=== PATIENT | female | born 2005 | race Caucasian/White ===

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

== ENCOUNTER 2024-06-09 10:57 | Day surgery (SDC) | payer OTHER ==
[2024-06-09 11:15] LABS: HCG URINE TEST NEGATIVE (NEGATIVE)
[2024-06-09] MEDS ORDERED: propofoL IV ONE ×2 (12:57→13:07)
--- NOTE | 2024-06-09 14:23 | XRAY ---
Indication: Bilateral SI joint injection. Intraoperative fluoroscopy provided for 22 seconds. 6 digital spot images submitted for interpretation demonstrates posterior needle tips projecting over the left and right SI joints. Small amount of contrast injected for needle tip placement. Correlate with intraoperative findings/report.
--- NOTE | 2024-06-09 14:57 | XRAY ---
22 seconds of fluoroscopy was used in surgery for a bilateral sacroiliac joint injection.
== END 2024-06-09 13:29 | disposition home or self-care (01) ==
LOC: SDC-PAIN 10:57
PROVIDERS: ATTEND Psychiatry & Neurology Pain Medicine
DX: M46.1 Sacroiliitis, not elsewhere classified (principal)
CPT/HCPCS: 27096; 72202; 77002; 81025; J2704; Q9966

== ENCOUNTER 2024-06-22 13:14 | Emergency (ER) | payer OTHER ==
--- NOTE | 2024-06-22 13:19 | ERPHSYRPT ---
- History of Present Illness Time Seen by Provider: 06/22/24 13:19 Source: patient Exam Limitations: no limitations Physician History: This is a 19-year-old white female patient who arrives by private vehicle accompanied by family/friend who is a patient of Dr. Burch concerned about headache with associated tingling in her left hand, nose and tongue which occurred prior to arrival and was brief. Patient does have a history of migraine headaches. Her headache pain is controlled as an outpatient by Dr. Prieto and Dr. Martinez, both physicians were seen within the last 10 days. Patient has had a craniotomy in the past secondary to a bolt flying out of a lawnmower hitting her in the left side of her forehead and she has a titanium plate in place. She has no chest pain. She has no shortness of breath. The tingling has subsided. Timing/Duration: today Head Pain Location: frontal Severity of Pain-Max: mild Severity of Pain-Current: mild Recent Head Trauma: no recent headache/trauma, chronic headaches Associated Symptoms: sensitive to light, No confusion, No dizziness, No light- headedness, No neck pain, No speech problems, No stiff neck, No vision changes, No visual disturbance Previous symptoms: same symptoms as today, no recent treatment Allergies/Adverse Reactions: No Known Drug Allergies Allergy (Verified 12/23/22 02:21) Home Medications: Ethinyl Estradiol/Drospirenone [Loryna 3 mg-0.02 mg Tablet] 1 each PO DAILY 06/22/24 [History] Hx Tetanus, Diphtheria Vaccination/Date Given: Yes Hx Influenza Vaccination/Date Given: No Hx Pneumococcal Vaccination/Date Given: No Travel Risk - International Travel Have you traveled outside of the country in past 3 weeks: No - Emerging Infectious Disease Are you exhibiting symptoms associated with any current EIDs: No - Review of Systems Constitutional: No Symptoms Eyes: No Symptoms Ears, Nose, & Throat: No Symptoms Respiratory: No Symptoms Cardiac: No Symptoms Abdominal/Gastrointestinal: No Symptoms Genitourinary Symptoms: No Symptoms Musculoskeletal: No Symptoms Skin: No Symptoms Neurological: Headache, Parasthesia (Now resolved. However, initially and briefly was present left hand, tongue and nose) Psychological: No Symptoms Endocrine: No Symptoms Hematologic/Lymphatic: No Symptoms Immunological/Allergic: No Symptoms All Other Systems: Reviewed and Negative - Past Medical History Pertinent Past Medical History: Yes Neurological History: Migraines ENT History: No Pertinent History Cardiac History: No Pertinent History Respiratory History: No Pertinent History Endocrine Medical History: No Pertinent History Musculoskeletal History: No Pertinent History GI Medical History: No Pertinent History History: No Pertinent History Psycho-Social History: No Pertinent History Female Reproductive Disorders: No Pertinent History Other Medical History: TITANIUM PLATE IN SKULL WITH SMALL PORTION OF HER BRAIN REMOVED AFTER INCIDENT WHEN GETTING HIT WITH PROJECTILE OBJECT WHEN SHE WAS LITTLE. - Past Surgical History Past Surgical History: Yes Neuro Surgical History: Other Cardiac: No Pertinent History Respiratory: No Pertinent History Gastrointestinal: No Pertinent History Genitourinary: No Pertinent History Musculoskeletal: No Pertinent History Female Surgical History: No Pertinent History Other Surgical History: Titanium plate in forehead - Social History Smoking Status: Never smoker Exposure to second hand smoke: Yes Drug Use: none Patient Lives Alone: No - Nursing Vital Signs Nursing Vital Signs: Initial Vital Signs Temperature 97.2 F 06/22/24 13:22 Pulse Rate 96 H 06/22/24 13:22 Respiratory Rate 18 06/22/24 13:22 Blood Pressure 150/101 06/22/24 13:22 O2 Sat by Pulse Oximetry 100 06/22/24 13:22 Pain Scale Pain Intensity 0 - Physical Exam General Appearance: no apparent distress, alert, anxiety, thin Eye Exam: eyes nml inspection Ears, Nose, Throat Exam: moist mucous membranes Neck Exam: normal inspection, non-tender, supple, full range of motion Respiratory Exam: normal breath sounds, lungs clear, airway intact, No chest tenderness, No respiratory distress Cardiovascular Exam: regular rate/rhythm, normal heart sounds, normal peripheral pulses Gastrointestinal/Abdominal Exam: soft, normal bowel sounds, No tenderness Back Exam: normal inspection, normal range of motion, No CVA tenderness, No vertebral tenderness Extremity Exam: normal inspection, normal range of motion, pelvis stable Mental Status Exam: alert, oriented x 3, 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 Exam: normal hearing, normal speech, PERRL, tongue midline Coordination/Gait Exam: normal gait, normal cerebellar function Motor/Sensory Exam: no motor deficit, no sensory deficit Skin Exam: normal color, warm, dry Lymphatic Exam: No adenopathy SpO2 Interpretation: normal O2 Delivery: Room Air - Course Nursing assessment & vital signs reviewed: Yes Ordered Tests: Active Orders 24 hr Category Date Time Status HEAD WITHOUT CONTRAST [CT] Stat Exams 06/22/24 13:36 Completed HCG QUALITATIVE, URINE Stat Lab 06/22/24 13:48 Completed UA W/RFX UR CULTURE Stat Lab 06/22/24 13:48 Completed Medication Summary Discontinued Medications Generic Name Dose Route Start Last Admin Trade Name Josafat PRN Reason Stop Dose Admin Hydromorphone HCl 0.5 mg 06/22/24 14:30 06/22/24 15:05 Hydromorphone 1 Mg/1ml Inj IM 06/22/24 14:31 0.5 mg STAT ONE Administration Hydromorphone HCl Confirm 06/22/24 15:02 Hydromorphone 1 Mg/1ml Inj Administered 06/22/24 15:03 Dose 1 mg .ROUTE [employer] ONE Prochlorperazine Edisylate 5 mg 06/22/24 14:30 06/22/24 15:06 Prochlorperazine Edisylate 10 Mg/2 Ml Vial IM 06/22/24 14:31 5 mg STAT ONE Administration Prochlorperazine Edisylate Confirm 06/22/24 15:03 Prochlorperazine Edisylate 10 Mg/2 Ml Vial Administered 06/22/24 15:04 Dose 10 mg .ROUTE .[employer] ONE Lab/Rad Data: Laboratory Results 06/22/24 06/22/24 Range/Units 13:48 13:48 Urine Color Yellow (Yellow) Urine Appearance Clear (Clear) Urine pH 7.0 (4.6-8.0) Ur Specific [place] 1.010 (1.005-1.030) Urine Protein Negative (Negative) Urine Glucose (UA) Negative (Negative) mg/dL Urine Ketones Negative (Negative) Urine Blood Negative (Negative) Urine Nitrite Negative (Negative) Urine Bilirubin Negative (Negative) Urine Urobilinogen 0.2 (0.2) mg/dL Ur Leukocyte Esterase Negative (Negative) U Hyaline Cast (Auto) NONE SEEN (0-2) /LPF Urine Microscopic RBC 0-2 (0-5) /HPF Urine Microscopic WBC 3-5 (0-5) /HPF Ur Epithelial Cells Rare (None Seen) /HPF Urine Bacteria None Seen (None Seen) /HPF Urine Culture Reflexed NO (NO) Urine HCG, Qual NEGATIVE (NEGATIVE) - Progress Progress: improved, re-examined Air Movement: good Progress Note: 06/22/24 13:47 My medical decision making and the assignment of low to moderate complexity is based on review of the patient's past medical history, review of patient's medication list, reviewed patient drug allergy list, history present illness and physical findings on examination. The workup in this patient includes CT scan of the head without contrast. Differential diagnosis includes but is not limited to anxiety, migraine headache, acute intracranial abnormality 06/22/24 15:[address] scan of the head without contrast was interpreted by the radiologist and I reviewed the impression. The impression states postsurgical changes left frontal region with postoperative encephalomalacia. No acute intracranial abnormalities. Blood Culture(s) Obtained: No Antibiotics given: No Counseled pt/family regarding: diagnosis, need for follow-up, rad results Medical Desision Making - Independent Historian Additional History obtained from: Relative/friend - Diagnostic Testing Diagnostic test were ordered, analyzed, and reviewed by me: Yes Radiological Interpretation: Reviewed by me, Teleradiologist Report - Risk of complications Minimal Risk: Minimal risk of morbidity - Departure Departure Disposition: Home Clinical Impression: Headache Condition: Stable Critical Care Time: No Referrals: KATIE BURCH MD [Primary Care Provider] - Follow up/PCP as directed Additional Instructions: Drink plenty of clear liquids. Take your medications as prescribed. Call your primary care provider today, 06/22/2024, to make arrangements for follow-up appointment for further evaluation and management.
[2024-06-22 13:26] VITALS: RESP 18; TEMP 97.2
[2024-06-22 14:00] LABS: HCG URINE TEST NEGATIVE (NEGATIVE)
[2024-06-22 14:06] LABS: Appearance Clear (Clear); Bacteria None Seen /HPF (None Seen); Bilirubin Negative (Negative); Blood Negative (Negative); Epithelial Cells Rare /HPF (None Seen); Glucose, Urine Negative (Negative); Hyaline Casts NONE SEEN /LPF (0-2); Ketones Negative (Negative); Leukocyte Esterase Negative (Negative); Nitrite Negative (Negative); Protein,Urine Dip Negative (Negative); RBC 0-2 /HPF (0-5); Urobilinogen 0.2 mg/dL (0.2)
[2024-06-22] MEDS ORDERED: Hydromorphone 1 mg/ml Injection ONE (15:02)
[2024-06-22] MEDS ORDERED: Compazine 10 MG/2 ML ONE (15:03)
[2024-06-22] MEDS: Hydromorphone 1 mg/ml Injection IM ONE (15:05)
[2024-06-22] MEDS: Compazine 10 MG/2 ML IM ONE (15:06)
--- NOTE | 2024-06-22 15:19 | XRAY ---
Indication: Headache. Numbness left hand, nose, and tongue. Head injury 2 days ago. Multiple contiguous axial images obtained through the head without contrast. Comparison: None Previous left frontal craniotomy with overlying metallic hardware and underlying left frontal encephalomalacia. No acute intracranial hemorrhage, hydrocephalus, or mass effect. Fourth ventricle is midline. Lane-white matter differentiation preserved. Remaining bony calvarium intact. Visualized paranasal sinuses and mastoid air cells are clear. Impression: Left frontal post surgical changes including craniotomy with underlying left frontal encephalomalacia. No acute intracranial abnormalities.
[2024-06-22 15:43] VITALS: BP 121/76; PULSE 75; O2SAT 97
== END 2024-06-22 15:51 | disposition home or self-care (01) ==
LOC: ED 13:14
DX: R51.9 Headache, unspecified (principal); R20.2 Paresthesia of skin; Z96.7 Presence of other bone and tendon implants
CPT/HCPCS: 70450; 81001; 81025; 96372; 99284; J1171

== ENCOUNTER 2025-03-21 06:34 | Emergency (ER) | payer OTHER ==
[2025-03-21 06:43] VITALS: TEMP 97.4
--- NOTE | 2025-03-21 07:02 | ERPHSYRPT ---
- History of Present Illness Time Seen by Provider: 03/21/25 06:56 Patient Subjective Stated Complaint: pt reports midsternal chest pain worse with inspiration beginning last evening around 10pm. pt states she was unable to sleep last night due to the pain. pt denies cough or recent illness. Triage Nursing Assessment: pt is aox3, pupils perrl, afebrile, resps easy and non labored, lung sounds are clear throughout all natarajan, cap refill < 3 seconds, radial pulses strong and equal, heart tones are normal, abd soft non tender, bowel sounds present and normoactive x 4, pt skin pink warm dry. Physician History: Chest pain, onset of symptoms last night, worse with movement and taking a deep breath, She denied history of diabetes, hypertension, she does have a 2-year-old at home, she vapes Timing/Duration: yesterday Activities at Onset: none Quality: aching Location: substernal Chest Pain Radiation: no radiation Severity of Pain-Max: moderate Severity of Pain-Current: mild Modifying Factors: Improves With: breathing, change in position Associated Symptoms: denies symptoms Aspirin Treatment Today: no aspirin today Allergies/Adverse Reactions: No Known Drug Allergies Allergy (Verified 03/21/25 06:43) Home Medications: Sertraline HCl [Zoloft] 25 mg PO DAILY 03/21/25 [History] Hx Tetanus, Diphtheria Vaccination/Date Given: Yes Hx Influenza Vaccination/Date Given: No Hx Pneumococcal Vaccination/Date Given: No Immunizations Up to Date: No Travel Risk - International Travel Have you traveled outside of the country in past 3 weeks: No - Emerging Infectious Disease Are you exhibiting symptoms associated with any current EIDs: No - Past Medical History Pertinent Past Medical History: Yes Neurological History: Migraines ENT History: No Pertinent History Cardiac History: No Pertinent History Respiratory History: No Pertinent History Endocrine Medical History: No Pertinent History Musculoskeletal History: No Pertinent History GI Medical History: No Pertinent History History: No Pertinent History Psycho-Social History: No Pertinent History Female Reproductive Disorders: No Pertinent History Other Medical History: TITANIUM PLATE IN SKULL WITH SMALL PORTION OF HER BRAIN REMOVED AFTER INCIDENT WHEN GETTING HIT WITH PROJECTILE OBJECT WHEN SHE WAS LITTLE. - Past Surgical History Past Surgical History: Yes Neuro Surgical History: Other Cardiac: No Pertinent History Respiratory: No Pertinent History Gastrointestinal: No Pertinent History Genitourinary: No Pertinent History Musculoskeletal: No Pertinent History Female Surgical History: No Pertinent History Other Surgical History: Titanium plate in forehead - Female History Hx Last Menstrual Period: IUD Hx Now: No - Social History Smoking Status: Never smoker Exposure to second hand smoke: No Drug Use: none - Social Determinants of Health Will the patient participate in the screening: Yes Do you worry about a steady place to live?: No Do you have any problems with any of the following?: No known problems In the past 12 months,have you had to go without utilities?: No Transportation Issues: No Has anyone in your support network made you feel unsafe?: No Have you or anyone in your house had to go w/o enough food: No - Nursing Vital Signs Nursing Vital Signs: Initial Vital Signs Temperature 97.4 F 03/21/25 06:35 Pulse Rate 66 03/21/25 06:35 Respiratory Rate 20 03/21/25 06:35 O2 Sat by Pulse Oximetry 96 03/21/25 06:35 Pain Scale Pain Intensity 9 - Physical Exam General Appearance: no apparent distress, alert Eye Exam: PERRL/EOMI, eyes nml inspection Ears, Nose, Throat Exam: normal ENT inspection, moist mucous membranes Neck Exam: normal inspection, non-tender, supple, full range of motion Respiratory Exam: normal breath sounds, lungs clear, No respiratory distress Cardiovascular Exam: regular rate/rhythm, normal heart sounds Gastrointestinal/Abdomen Exam: soft, No tenderness, No mass Back Exam: normal inspection, No CVA tenderness, No vertebral tenderness Extremity Exam: normal inspection, normal range of motion Neurologic Exam: alert, oriented x 3, cooperative, normal mood/affect, sensation nml, No motor deficits Skin Exam: normal color, warm, dry SpO2 Interpretation: normal SpO2: 96 - Course EKG Interpreted by Me: RATE (66), Sinus Rhythm, NORMAL AXIS, NORMAL INTERVALS, NORMAL QRS, NORMAL ST-T - Radiology Exams Chest X-ray Interpretation: Interpreted by me, No Pneumonia, No Pneumothorax, No Infiltrates, Nml Mediastinum Ordered Tests: Active Orders 24 hr Category Date Time Status CHEST 2 VIEWS (PA AND LAT) Stat Exams 03/21/25 07:22 Taken - Progress Progress Note: 03/21/25 07:58 Discussed EKG and chest x-ray, outpatient follow-up treatment and follow-up - Departure Departure Disposition: Home Clinical Impression: Acute chest wall pain Condition: Fair Critical Care Time: No Referrals: KATIE BURCH MD [Primary Care Provider, [facility]] - Follow up PCP 10 days Instructions: Costochondritis Additional Instructions: you may also take Ibuprofen 2-3 tabs, 3 times a day Prescriptions: methocarbamoL [Methocarbamol] 750 mg PO TID PRN #15 tablet PRN Reason: Pain
[2025-03-21 08:16] VITALS: BP 136/80; PULSE 60; RESP 20; O2SAT 99
--- NOTE | 2025-03-21 08:46 | XRAY ---
Indication: Chest pain. Comparison: December 13, 2024 PA/lateral chest again demonstrates normal heart and lungs. Bony thorax intact. No new/acute findings.
== END 2025-03-21 08:19 | disposition home or self-care (01) ==
LOC: ED 06:34
DX: R07.89 Other chest pain (principal); Z79.899 Other long term (current) drug therapy